=== PATIENT | male | born 1990 | race American Indian/Alaskan Native ===

== ENCOUNTER 2017-04-01 09:43 | Emergency (ER) | payer MEDICAID ==
[2017-04-01 09:59] VITALS: BP 118/68; PULSE 64; RESP 18; TEMP 98.2; O2SAT 99
--- NOTE | 2017-04-01 10:16 | C.PDOC ---
History Of Present Illness 26 yr old male presents to the ER with new onset of a mass to the right side of neck for the past 10 days. Patient states it is localized, painful to touch and worse with swallowing. Also reports of fever, chills and malaise. Patient reports he is s/p nyquil last night with limited improvement. Denies vision changes, nausea, vomiting, headache, weakness or numbness. NEW ONSET PERSIST R NECK MASS X 10 DAYS. LOCALIZED PAINFUL TO TOUCH, WORSE W SWALLOWING. SUBJ FEVER, CHILLS, MALAISE. NO OTHER ASSOC SX. S/P NYQUIL LAST NIGHT W LIMITED IMPROVE EXAM NAD PHARYNX NEG. MMM. NOSE CLEAR NODES: +1 CM MOBILE NODE R ANT CERVICAL NODE W LOCAL TEND. +L ANT CERV NODES MOBILE 1 CM X 2, NONTEND. NO POST AURICULAR, CLAV, SUBMAND NODES. NECK SUPPLE Time Seen by Provider: 04/01/17 10:05 Chief Complaint (Nursing): ENT Problem History Per: Patient History/Exam Limitations: no limitations Onset/Duration Of Symptoms: Days (10) Current Symptoms Are (Timing): Still Present Past Medical History Reviewed: Historical Data, Nursing Documentation, Vital Signs Vital Signs: Last Vital Signs Temp 98.2 F 04/01/17 09:57 Pulse 64 04/01/17 09:57 Resp 18 04/01/17 09:57 BP 118/68 04/01/17 09:57 Pulse Ox 99 04/01/17 10:32 Family History: States: No Known Family Hx Review Of Systems Except As Marked, All Systems Reviewed And Found Negative. Constitutional: Positive for: Fever (Subjective), Chills, Malaise Gastrointestinal: Negative for: Nausea, Vomiting Musculoskeletal: Positive for: Other ((+) Painful mass to the right side of neck.) Neurological: Negative for: Weakness, Numbness, Headache Physical Exam - Physical Exam Appears: Non-toxic, No Acute Distress Skin: Warm, Dry, No Rash Head: Atraumatic, Normacephalic Ear(s): Bilateral: Normal Nose: Normal Oral Mucosa: Moist Throat: Normal, No Erythema, No Exudate, No Drooling Neck: Normal ROM, Supple Lymphatic: Other ((+) 1cm mobile node to the right anterior cervical, with local tenderness. 2x 1cm mobile node to the left anterior cervical, non tender. No post auricular, clavical, submandibular nodes. ) Chest: Symmetrical, No Tenderness Cardiovascular: Rhythm Regular, No Murmur Respiratory: Normal Breath Sounds, No Rales, No Rhonchi, No Stridor, No Wheezing Extremity: Normal ROM, No Swelling Neurological/Psych: Oriented x3, Normal Speech, Normal Motor ED Course And Treatment - Laboratory Results Result Diagrams: 04/01/17 10:34 O2 Sat by Pulse Oximetry: 99 (RA) Pulse Ox Interpretation: Normal Reevaluation Time: 11:00 Reassessment Condition: Improved Medical Decision Making Medical Decision Making: PLAN: * CBC * Tylenol PO * Toradol IM Disposition Counseled Patient/Family Regarding: Studies Performed, Diagnosis, Need For Followup, Rx Given - Disposition Referrals: [facility] [Outside] [facility] [Outside] Disposition: HOME/ ROUTINE Disposition Time: 11:00 Condition: IMPROVED Instructions: Lymphadenopathy (ED) Forms: [facility] ([place]), Work Excuse - Clinical Impression Clinical Impression: Lymphadenopathy - Scribe Statement The provider has reviewed the documentation as recorded by the Ranibpilar Joiner Provider Attestation: All medical record entries made by the Ranibpilar were at my direction and personally dictated by me. I have reviewed the chart and agree that the record accurately reflects my personal performance of the history, physical exam, medical decision making, and the department course for this patient. I have also personally directed, reviewed, and agree with the discharge instructions and disposition.
[2017-04-01 10:37] LABS: HEMATOCRIT 40.4 % (35.0-51.0); MEAN CELL VOLUME 85.2 fL (80.0-94.0); MEAN CORPUSCULAR HEMOGLOBIN 29.4 pg (27.0-31.0); MEAN CORPUSCULAR HGB CONC 34.6 g/dL (33.0-37.0); MEAN PLATELET VOLUME 7.9 fL (7.2-11.7); RED CELL DISTRIBUTION WIDTH 13.9 % (11.5-14.5); WHITE BLOOD COUNT 9.4 K/uL (4.8-10.8)
== END 2017-04-01 11:02 | disposition home or self-care (01) ==
LOC: C.ER 09:43
DX: R59.1 Generalized enlarged lymph nodes (principal)
CPT/HCPCS: 36415; 85027; 96372; 99283; J1885